=== PATIENT | female | born 1940 | race Hispanic/Latino ===

== ENCOUNTER → 2018-11-02 | Outpatient (CLI) | payer OTHER | END | disposition home or self-care (01) | LOC: RAH 14:23 | PROVIDERS: ATTEND Orthopaedic Surgery | DX: S83.271A Complex tear of lateral meniscus, current injury, right knee, initial encounter (principal); M25.461 Effusion, right knee; M17.11 Unilateral primary osteoarthritis, right knee; X58.XXXA Exposure to other specified factors, initial encounter; Y93.89 Activity, other specified; Y92.89 Other specified places as the place of occurrence of the external cause; Y99.8 Other external cause status | CPT/HCPCS: 73721 ==

== ENCOUNTER 2018-12-19 08:45 | Observation (INO) | payer OTHER, MEDICARE ==
[2018-12-16 11:26] LABS: BASOPHILS % (AUTO) 0.9 % (0.0-5.0); EOSINOPHILS % (AUTO) 2.5 % (0.0-8.0); HEMATOCRIT 39.1 % (36-48); LYMPHOCYTES % (AUTO) 16.3 % (21.0-51.0); MEAN CORPUSCULAR HEMOGLOBIN 28.1 pg (27.0-33.0); MEAN CORPUSCULAR HGB CONC 32.9 g/dL (32.0-36.0); MEAN CORPUSCULAR VOLUME 85.3 fL (79-99); MONOCYTES % (AUTO) 5.4 % (3.0-13.0); NEUTROPHILS % (AUTO) 74.9 % (40.0-77.0); PLATELET COUNT (AUTO) 204 K/uL (130-400); RED BLOOD CELL COUNT(AUTO) 4.59 MIL/uL (4.00-5.50); RED CELL DISTRIBUTION WIDTH 14.6 % (11.0-15.5); WHITE BLOOD COUNT (AUTO) 7.1 K/uL (4.8-10.8)
[2018-12-16 11:27] VITALS: BP 152/72
[2018-12-16 11:32] LABS: APPEARANCE,URINE CLOUDY (CLEAR); BILIRUBIN,URINE NEGATIVE (NEGATIVE); COLOR,URINE YELLOW (YELLOW); GLUCOSE, URINE (UA) NEGATIVE (NEGATIVE); KETONES,URINE NEGATIVE (NEGATIVE); LEUKOCYTE ESTERASE ,URINE SMALL (NEGATIVE); NITRATE,URINE NEGATIVE (NEGATIVE); OCCULT BLOOD,URINE TRACE-INTACT (NEGATIVE); PROTEIN,URINE 30 mg/dL (NEGATIVE); UROBILINOGEN,URINE 0.2 mg/dL (0.2-1.0)
[2018-12-16 11:34] LABS: CREATININE 1.4 mg/dL (0.5-1.5); POTASSIUM 4.2 mmol/L (3.5-5.1)
[2018-12-16 11:37] LABS: INR 0.93 (0.85-1.15); PROTHROMBIN TIME 9.8 SEC (9.6-11.6)
[2018-12-16 11:57] LABS: RBC,URINE 0-1 /HPF (0-1)
[2018-12-16 12:00] LABS: BACTERIA,URINE Many /HPF (None Seen); SQUAMOUS EPITHELIAL CELL,UR Rare /HPF (0-2); WBC,URINE 26-50 /HPF (0-1)
--- NOTE | 2018-12-16 17:49 | NUR ---
UA INFORMED DR. REDDY OF ABNORMAL UA. ORDERS RECEIVED TO GIVE GENTAMICIN 240MG IV ON AM OF PROCEDURE AND SEND URINE FOR CULTURE.
[~2018-12-19] VITALS: Ht 167.6 cm; Wt 96.8 kg
[2018-12-19] VITALS (20 sets, daily range): BP systolic 103–150; BP diastolic 54–71
[2018-12-19] MEDS: CLINDAMYCIN 900 MG/D5% WATER 50 ML IV SCH ×3 (05:00→21:05)
[~2018-12-19 08:45] MED LIST: AMLO5TAB9 PO; ATOR20TA65 PO; CARV3.12 PO; DULO30CA52 PO; INSU100V37 SQ; INSU500I SQ; MONT10TA24 PO; SITA25TA5 PO
[2018-12-19] MEDS ORDERED: GENTAMICIN SULFATE 0 MG in SODIUM CHLORIDE 0.9% 100 ML IV SCH (09:00)
[2018-12-19] MEDS ORDERED: GENTAMICIN SULFATE 240 MG in SODIUM CHLORIDE 0.9% 100 ML IV SCH (09:00)
[2018-12-19] MEDS ORDERED: SODIUM CHLORIDE 0.9% 1000ML 1,000 ML IV ONE (09:16)
[2018-12-19] MEDS ORDERED: ACETAMINOPHEN EXTRA STRENGTH 500 MG TABLET ONE (11:53)
[2018-12-19] MEDS ORDERED: CELECOXIB 200 MG CAP ONE (11:54)
[2018-12-19] MEDS ORDERED: OXYCODONE HCL 10 MG TAB.SR.12H PO ONE (11:54)
[2018-12-19] MEDS ORDERED: MIDAZOLAM HCL 1 MG/ML 2ML VIAL ONE (12:04)
[2018-12-19] MEDS ORDERED: ONDANSETRON HCL 4 MG/2 ML VIAL ONE (12:04)
[2018-12-19] MEDS ORDERED: LIDOCAINE PF 2% 5ML ABBOJECT ONE (12:04)
[2018-12-19] MEDS ORDERED: NEOSTIGMINE 5MG/5ML SYR IV ONE (12:04)
[2018-12-19] MEDS ORDERED: DEXAMETHASONE SOD PHOSPHATE 10MG/ML 1ML VIAL ONE (12:04)
[2018-12-19] MEDS ORDERED: GLYCOPYRROLATE 1 MG/5 ML SYRINGE ONE (12:04)
[2018-12-19] MEDS ORDERED: SUCCINYLCHOLINE 200MG/10ML SYR ONE (12:04)
[2018-12-19] MEDS ORDERED: PROPOFOL 10 MG/ML 20ML VIAL IV ONE (12:04)
[2018-12-19] MEDS ORDERED: ROCURONIUM 10MG/1ML SYR 10 MG/ML ML ONE (12:05)
[2018-12-19] MEDS ORDERED: FENTANYL CITRATE PF 50 MCG/1 ML 2ML VIAL ONE (12:05)
[2018-12-19] MEDS ORDERED: ROPIVACAINE 0.5% 5MG/ML 30ML IJ ONE (12:06)
[2018-12-19] MEDS ORDERED: CLINDAMYCIN PHOSPHATE 150 MG/ML 6ML VIAL ONE (12:30)
[2018-12-19] MEDS ORDERED: TRANEXAMIC ACID 1000MG/10ML IV ONE ×2 (12:31→16:18)
[2018-12-19] MEDS ORDERED: EPHEDRINE SULFATE 50 MG/ML AMPULE ONE (13:19)
[2018-12-19] MEDS ORDERED: CLINDAMYCIN PHOSPHATE 150 MG/ML 6ML VIAL IJ ONE (13:55)
[2018-12-19] MEDS ORDERED: PHENYLEPHRINE HCL 10 MG/ML 1ML VIAL IV ONE (15:08)
[2018-12-19] MEDS: SODIUM CHLORIDE 0.9% 1000ML 1,000 ML IV SCH (15:23)
[2018-12-19] MEDS ORDERED: FERROUS FUMARATE 324 MG TABLET PO PRN (15:30)
[2018-12-19] MEDS ORDERED: OXYCODONE HCL 5 MG TAB PO PRN (15:30)
[2018-12-19] MEDS ORDERED: ONDANSETRON HCL 4 MG/2 ML VIAL IVP PRN (15:30)
[2018-12-19] MEDS ORDERED: LIDOCAINE HCL-MPF 1% 2ML VIAL IV PRN (15:30)
[2018-12-19] MEDS ORDERED: TEMAZEPAM 15 MG CAPSULE PO PRN (15:30)
[2018-12-19] MEDS ORDERED: DiphenhydrAMINE HCL 50 MG/ML VIAL IVP PRN (15:30)
[2018-12-19] MEDS ORDERED: POTASSIUM CHLORIDE 20 MEQ ERTAB PO PRN (15:30)
[2018-12-19] MEDS: ACETAMINOPHEN EXTRA STRENGTH 500 MG TABLET PO SCH ×2 (15:30→21:09)
[2018-12-19] MEDS ORDERED: POTASSIUM CHLORIDE 20MEQ/100ML 100 ML IV PRN (15:30)
[2018-12-19] MEDS ORDERED: TRAMADOL HCL 50 MG TABLET PO PRN (15:30)
[2018-12-19] MEDS ORDERED: POTASSIUM CHLORIDE 10% ELIXIR 20 MEQ/15 ML UDCUP PO PRN (15:30)
[2018-12-19] MEDS: INSULIN HUMULIN R 100 UNIT/ML 3ML SQ SCH ×3 (16:30→21:21)
[2018-12-19] MEDS: LINAGLIPTIN 5 MG TABLET PO SCH (18:15)
[2018-12-19] MEDS: AMLODIPINE BESYLATE 5 MG TAB PO SCH (21:04)
[2018-12-19] MEDS: MONTELUKAST SODIUM 10 MG TAB PO SCH (21:04)
[2018-12-19] MEDS: ASPIRIN 81MG TAB.CHEW PO SCH (21:04)
[2018-12-19] MEDS: CELECOXIB 200 MG CAP PO SCH (21:04)
[2018-12-19] MEDS: PREGABALIN 25 MG CAP PO SCH (21:04)
[2018-12-19] MEDS: ATORVASTATIN CALCIUM 20 MG TABLET PO SCH (21:05)
[2018-12-19] MEDS: CARVEDILOL 3.125 MG TABLET PO SCH (21:05)
[2018-12-20] MEDS: SODIUM CHLORIDE 0.9% 1000ML 1,000 ML IV SCH ×2 (00:45→11:23)
[2018-12-20 03:32] VITALS: BP 115/45
[2018-12-20 05:10] LABS: CREATININE 1.4 mg/dL (0.5-1.5)
[2018-12-20] MEDS: INSULIN HUMULIN R 100 UNIT/ML 3ML SQ SCH ×8 (05:34→21:18)
[2018-12-20] MEDS: ACETAMINOPHEN EXTRA STRENGTH 500 MG TABLET PO SCH ×3 (05:35→22:42)
[2018-12-20] MEDS: CLINDAMYCIN 900 MG/D5% WATER 50 ML IV SCH (05:35)
[2018-12-20 05:52] LABS: POTASSIUM 4.9 mmol/L (3.5-5.1)
[2018-12-20 07:54] VITALS: BP 109/65
[2018-12-20] MEDS: INSULIN DEGLUDEC 16 UNIT SQ SCH (09:00)
[2018-12-20] MEDS: CELECOXIB 200 MG CAP PO SCH ×2 (09:43→21:10)
[2018-12-20] MEDS: ASPIRIN 81MG TAB.CHEW PO SCH ×2 (09:43→21:10)
[2018-12-20] MEDS: PREGABALIN 25 MG CAP PO SCH ×2 (09:44→21:10)
[2018-12-20] MEDS: CARVEDILOL 3.125 MG TABLET PO SCH ×2 (09:44→21:10)
[2018-12-20] MEDS: DULOXETINE HCL 30 MG CAP PO SCH (09:44)
[2018-12-20] MEDS: POLYETHYLENE GLYCOL 3350 17 GM POWD.PACK PO SCH (09:45)
[2018-12-20] MEDS: NITROFURANTOIN MONOHYD/M-CRYST 100 MG CAPSULE PO SCH ×2 (09:45→21:10)
[2018-12-20] MEDS: FAMOTIDINE 20MG TAB 20 MG TAB PO SCH (09:45)
[2018-12-20] MEDS: LINAGLIPTIN 5 MG TABLET PO SCH (09:45)
--- NOTE | 2018-12-20 11:00 | NUR ---
INITIAL AND ASSESSMENT MET W PATIENT WITH FRIEND AT BEDSIDE- PT AOOX 3, LIVES W SON BUT SAMIRE IS ALWAYS WORKING., ORDER FOR [facility], PT STATES WANTS TO GO TO [facility]- ADVISED THAT INSURANCE DOES NOT COVER- PT CHOICE JAYY MANLEY HERE TO SEE PT, FRANKAL FAXED INCLUDED PASSR, LACKING PT NOTES, TO FOLLOW Addendum: 12/21/18 at 3 by CLAUDIA PHIPPS RN CM Amended: Links added.
[2018-12-20 12:00] VITALS: BP 106/41
[2018-12-20] MEDS: OXYCODONE HCL 5 MG TAB PO PRN ×2 (13:49→22:44)
[2018-12-20 16:00] VITALS: BP 109/48
[2018-12-20] MEDS ORDERED: NITR100C4 PO (17:26)
[2018-12-20] MEDS ORDERED: HYDR-4457 PO (17:26)
[2018-12-20] MEDS ORDERED: ASPI-1005 PO (17:26)
[2018-12-20 19:50] VITALS: BP 159/92
[2018-12-20] MEDS: MONTELUKAST SODIUM 10 MG TAB PO SCH (21:10)
[2018-12-20] MEDS: ATORVASTATIN CALCIUM 20 MG TABLET PO SCH (21:10)
[2018-12-20] MEDS: AMLODIPINE BESYLATE 5 MG TAB PO SCH (21:11)
[2018-12-20 23:18] VITALS: BP 130/51
[2018-12-21 03:48] VITALS: BP 122/58
[2018-12-21] MEDS: INSULIN HUMULIN R 100 UNIT/ML 3ML SQ SCH ×4 (06:51→13:22)
[2018-12-21] MEDS: ACETAMINOPHEN EXTRA STRENGTH 500 MG TABLET PO SCH (07:08)
[2018-12-21 07:27] VITALS: BP 129/67
[2018-12-21] MEDS ORDERED: BISACODYL 10 MG SUPP.RECT RC ONE (08:11)
[2018-12-21] MEDS: DULOXETINE HCL 30 MG CAP PO SCH (08:30)
[2018-12-21] MEDS: LINAGLIPTIN 5 MG TABLET PO SCH (08:30)
[2018-12-21] MEDS: CELECOXIB 200 MG CAP PO SCH (08:30)
[2018-12-21] MEDS: FAMOTIDINE 20MG TAB 20 MG TAB PO SCH (08:30)
[2018-12-21] MEDS: CARVEDILOL 3.125 MG TABLET PO SCH (08:30)
[2018-12-21] MEDS: NITROFURANTOIN MONOHYD/M-CRYST 100 MG CAPSULE PO SCH (08:30)
[2018-12-21] MEDS: ASPIRIN 81MG TAB.CHEW PO SCH (08:31)
[2018-12-21] MEDS: PREGABALIN 25 MG CAP PO SCH (08:31)
[2018-12-21] MEDS: POLYETHYLENE GLYCOL 3350 17 GM POWD.PACK PO SCH (08:31)
[2018-12-21] MEDS: INSULIN DEGLUDEC 16 UNIT SQ SCH (08:56)
--- NOTE | 2018-12-21 10:00 | NUR ---
Ambulated well with physical therapist in the hallway. Denies buckling of her right knee
[2018-12-21 11:23] VITALS: BP 117/67
--- NOTE | 2018-12-21 13:30 | NUR ---
Dressing change performed to right knee, tolerated well
--- NOTE | 2018-12-21 14:50 | NUR ---
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
[2018-12-21] MEDS ORDERED: FLU VACC QS2019-20 36MOS UP/PF 60 MCG/0.5 ML ML IM ONE (16:30)
[2018-12-22] MEDS ORDERED: BISACODYL 10 MG SUPP.RECT RC PRN (15:30)
== END 2018-12-21 15:46 ==
LOC: DAH 08:45 → 4BH 08:46
PROVIDERS: ADMIT Orthopaedic Surgery; ATTEND Orthopaedic Surgery
DX: M17.11 Unilateral primary osteoarthritis, right knee (principal); I13.0 Hypertensive heart and chronic kidney disease with heart failure and stage 1 through stage 4 chronic kidney disease, or unspecified chronic kidney disease; E11.22 Type 2 diabetes mellitus with diabetic chronic kidney disease; N18.9 Chronic kidney disease, unspecified; I50.32 Chronic diastolic (congestive) heart failure; E66.9 Obesity, unspecified; R00.2 Palpitations; E78.5 Hyperlipidemia, unspecified; R06.09 Other forms of dyspnea; R60.0 Localized edema; Z88.0 Allergy status to penicillin; Z91.048 Other nonmedicinal substance allergy status; Z79.4 Long term (current) use of insulin; Z79.899 Other long term (current) drug therapy; Z23 Encounter for immunization; Z68.34 Body mass index [BMI] 34.0-34.9, adult
CPT/HCPCS: 27447; 36415 ×2; 80048 ×2; 81001; 82948 ×10; 85025; 85610; 87077; 87088; 87186; 87641; 88304; 88311; 96365; 96366 ×2; 96367; 96372 ×3; 97039; 97116 ×4; 97161; 97530 ×3; A4215 ×3; A4221; A4222; A4223; A4600; A4649 ×5; A4663; A4930 ×3; A6260; C1763; C1776; G0008; G0168; G0378 ×45; G8978; G8979; G8980; G8981; G8982; G8983; J0330; J1100; J1580; J1815 ×9; J2001; J2250; J2370; J2405; J2704; J2710; J2795; J3010; J3490 ×7; J7030 ×2; J7120; Q2035